=== PATIENT | female | born 1990 | race Two or more races ===

== ENCOUNTER 2018-11-24 17:26 | Emergency (ER) | payer SELFPAY ==
[2018-11-24 17:43] VITALS: BP 145/88
--- NOTE | 2018-11-24 18:16 | UC ---
Throat Pain/Nasal Adarsh HPI - HPI Summary HPI Summary: Patient states approximately 10 days ago she developed a sore throat. Patient states she then developed some sinus pressure and postnasal drip. Patient states her ears feel full likely need to pop. Patient states she's been using Motrin as well as Mucinex with pseudoephedrine. Patient states she continues to feel congested. Patient states she started a fever 2 days ago. Patient states she does have postnasal drip. Patient with a mild cough productive of yellow sputum. No shortness of breath. No nausea vomiting. Decreased appetite and fatigue. 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 Patient states she is not . Patient with a history of recurrent sinus infections. Last one was approximately June. Patient states this feels similar. Medications reviewed this visit. - History of Current Complaint Chief Complaint: UCGeneralIllness Stated Complaint: COLD SYMPTOMS Time Seen by Provider: 11/24/18 17:56 Hx Obtained From: Patient Hx Last Menstrual Period: 2 weeks ago Onset/Duration: Gradual Onset Severity: Moderate Pain Intensity: 4 Pain Scale Used: 0-10 Numeric - Allergies/Home Medications Allergies/Adverse Reactions: Allergies Allergy/AdvReac Type Severity Reaction Status Date / Time No Known Allergies Allergy Verified 11/24/18 17:43 Home Medications: Home Medications PARoxetine HCL TAB* [Paxil TAB*] 10 mg PO DAILY 11/24/18 [History Confirmed ] amLODIPine TAB* [Norvasc 5 mg TAB*] 5 mg PO DAILY 11/24/18 [History Confirmed ] PMH/Surg Hx/FS Hx/Imm Hx Previously Healthy: Yes - Surgical History Surgical History: None - Family History Known Family History: Positive: Non-Contributory - Social History Occupation: Employed Full-time Lives: With Family Alcohol Use: None Substance Use Type: None Smoking Status (MU): Never Smoked Tobacco Review of Systems All Other Systems Reviewed And Are Negative: Yes Constitutional: Positive: Fever, Fatigue Skin: Positive: Negative Eyes: Positive: Negative - no that you discharge ENT: Positive: Nasal Discharge, Sinus Congestion, Sinus Pain/Tenderness Respiratory: Positive: Cough Cardiovascular: Positive: Negative Gastrointestinal: Positive: Negative Genitourinary: Positive: Negative Motor: Positive: Negative Neurovascular: Positive: Negative Musculoskeletal: Positive: Negative Neurological: Positive: Negative Psychological: Positive: Negative Is Patient Immunocompromised?: No - and she did Physical Exam - Summary Physical Exam Summary: Vital Signs Reviewed: Yes A+Ox3, no distress Eyes: Conjunctiva Clear, SELENE. EOM intact and full ENT: Hearing grossly normal fluid left TM, no erythema right TM wnl, turbinates boggy and congested, thick PND. + maxillary sinus tenderness L>R mmoist, uvula midline, no exudate, mild erythema, Neck: Positive: Supple, + mild submandibular LA Respiratory: Positive: No respiratory distress, No accessory muscle use + CTA throughout no w/r Cardiovascular: RRR nl s1, s2 no m/r CBT <2 sec abd soft + BS nt/nd no guarding, no distension Musculoskeletal Exam: GRIFFITH x 4 without difficulty Strength Intact, ROM Intact Neurological: Positive: Alert, + sensation throughout Psychological: Positive: Normal Response To examiner Skin: Positive: no rash, no ecchymosis Triage Information Reviewed: Yes Vital Signs: Initial Vital Signs Temp 99.4 F 11/24/18 17:38 Pulse 88 11/24/18 17:38 Resp 16 11/24/18 17:38 BP 145/88 11/24/18 17:38 Pulse Ox 99 11/24/18 17:38 Throat Pain/Nasal Course/Dx - Course Course Of Treatment: Patient is a 28-year-old female who presents with 10 days progressive sore throat sinus congestion postnasal drip ear fullness and cough. Patient now with low-grade fevers for 3 days. Patient's been taking [id number] remedies with little improvement. On exam vital signs are stable. Patient very congested. Patient exam consistent with rhinosinusitis. I did discuss with patient checking her for strep throat however she declined is we'll be treating her with appropriate antibiotics. We'll also do Flonase. Discussed with patient secretion precautions. Hydration. Return precautions. Patient states agreement and comfortable with plan. Patient declined work note. Patient declined Diflucan. Discussed with patient about diarrhea associated with Augmentin. States understanding. - Differential Dx/Diagnosis Provider Diagnosis: Rhinosinusitis Discharge ED - Sign-Out/Discharge Documenting (check all that apply): Patient Departure All imaging exams completed and their final reports reviewed: No Studies - Discharge Plan Condition: Stable Disposition: HOME Prescriptions: Amoxicillin/Clavulanate TAB* [Augmentin TAB 875*] 875 mg PO BID #14 tab Fluticasone NASAL SPRAY 50MCG* [Flonase NASAL SPRAY 50MCG*] 2 spray BOTH NARES DAILY #1 btl Patient Education Materials: Pharyngitis (ED), Rhinosinusitis (ED) Referrals: [facility] [place] [facility] [Outside] No Primary Care Phys,NOPCP [Primary Care Provider] - Additional Instructions: - Stay well hydrated. Drink plenty of non-alcoholic, non-caffinated beverages. - Alternate ibuprofen (Advil, Motrin) 600mg and Tylenol every 3 hours for pain or fever. Take with food. Do NOT take for more than 4-5 days. - These infections are spread by secretions - do NOT share eating or drinking utensils - clean items you share with other people such as cell phones, computer mouse, TV remote, computer tablets,etc. Once you have been antibiotics for 2 days, change your toothbrush and your pillowcase. - get plenty of restful sleep - humidify the air in the room where you sleep - boil water, run a hot steam shower, vaporizer, cups of water by heat register - okay to take over the counter decongestant and cough medication - use nasal spray as prescribed - Take antibiotics as prescribed until gone - you will likely get diarrhea from the antibiotics- eating yogurt or taking pro-biotics may help limit this side effect - contact your doctor or return with questions or concerns - Billing Disposition and Condition Condition: STABLE Disposition: Home
== END 2018-11-24 18:40 | disposition home or self-care (01) ==
LOC: UCEAST 17:26
DX: J32.9 Chronic sinusitis, unspecified (principal)
CPT/HCPCS: 99202; G0463

== ENCOUNTER 2019-02-03 18:14 | Emergency (ER) | payer SELFPAY ==
--- NOTE | 2019-02-03 18:18 | UC ---
Respiratory Complaint HPI - History of Current Complaint Stated Complaint: COUGH Time Seen by Provider: 02/03/19 18:18 Hx Last Menstrual Period: 2 weeks ago - Allergies/Home Medications Allergies/Adverse Reactions: Allergies Allergy/AdvReac Type Severity Reaction Status Date / Time No Known Allergies Allergy Verified 11/24/18 17:43 PMH/Surg Hx/FS Hx/Imm Hx - Surgical History Surgical History: None - Family History Known Family History: Positive: Non-Contributory - Social History Alcohol Use: None Substance Use Type: None Smoking Status (MU): Never Smoked Tobacco Discharge ED - Discharge Plan Referrals: No Primary Care Phys,NOPCP [Primary Care Provider] -
[2019-02-03 18:23] VITALS: BP 155/82
--- NOTE | 2019-02-03 18:34 | UC ---
Throat Pain/Nasal Adarsh HPI - HPI Summary HPI Summary: 28-year-old female comes in with a chief complaint of 97 days of upper respiratory tract infection symptoms. Patient's been having runny nose nasal congestion. A she is now having sinus pressure and green rhinorrhea. She has had chills. Patient reports after having upper respiratory tract infection she quite often goes into a sinusitis. She reports that in the past Augmentin is working well for her. No complaint of chest congestion or shortness breath. - History of Current Complaint Chief Complaint: UCRespiratory Stated Complaint: COUGH Time Seen by Provider: 02/03/19 18:18 Hx Last Menstrual Period: 12/13/18 Pain Intensity: 6 - Allergies/Home Medications Allergies/Adverse Reactions: Allergies Allergy/AdvReac Type Severity Reaction Status Date / Time egg yolk Allergy Sneezing Verified 02/03/19 18:24 Home Medications: Home Medications Dm/PE/Acetaminophen/Doxylamine [Vicks Dayquil/Nyquil Cold] 1 mis PO ONCE PRN 07/18 [History Confirmed 02/03/19] Ibuprofen [Advil] 1 tab PO ONCE PRN 02/03/19 [History Confirmed 02/03/19] PMH/Surg Hx/FS Hx/Imm Hx Previously Healthy: Yes - Surgical History Surgical History: None - Family History Known Family History: Positive: Non-Contributory - Social History Alcohol Use: Occasionally Substance Use Type: None Smoking Status (MU): Never Smoked Tobacco Review of Systems All Other Systems Reviewed And Are Negative: Yes Constitutional: Positive: Chills, Other - see hpi Skin: Positive: Negative Eyes: Positive: Negative ENT: Positive: Sore Throat, Nasal Discharge, Sinus Congestion, Sinus Pain/ Tenderness Respiratory: Positive: Negative Cardiovascular: Positive: Negative Gastrointestinal: Positive: Negative Motor: Positive: Negative Neurovascular: Positive: Negative Musculoskeletal: Positive: Arthralgia Neurological: Positive: Negative Psychological: Positive: Negative Is Patient Immunocompromised?: No Physical Exam Appearance: No Pain Distress, Well-Nourished, Ill-Appearing - mild Vital Signs: Initial Vital Signs Temp 97.7 F 02/03/19 18:18 Pulse 79 02/03/19 18:18 Resp 18 02/03/19 18:18 BP 155/82 02/03/19 18:18 Pulse Ox 97 02/03/19 18:18 Vital Signs Reviewed: Yes Eye Exam: Normal Eyes: Positive: Conjunctiva Clear ENT: Positive: Pharyngeal erythema, Nasal congestion, Nasal drainage, TMs normal Neck: Positive: Supple Respiratory: Positive: Lungs clear, Normal breath sounds, No respiratory distress Cardiovascular: Positive: RRR Musculoskeletal: Positive: Strength Intact, ROM Intact Neurological: Positive: Alert, Muscle Tone Normal Psychological: Positive: Age Appropriate Behavior Skin Exam: Normal Throat Pain/Nasal Course/Dx - Course Course Of Treatment: Patient's having sinusitis symptoms with 10 days of symptoms. Patient reports that Augmentin is worked in the past we'll treat with out again. Reevaluate if worsening or not improving - Differential Dx/Diagnosis Provider Diagnosis: Sinusitis Discharge ED - Sign-Out/Discharge Documenting (check all that apply): Patient Departure All imaging exams completed and their final reports reviewed: No Studies - Discharge Plan Condition: Stable Disposition: HOME Prescriptions: Amoxicillin/Clavulanate TAB* [Augmentin TAB 875*] 875 mg PO BID #20 tab Patient Education Materials: Sinusitis (ED) Referrals: [facility] – [place] [facility] [Outside] Additional Instructions: FOLLOW UP WITH YOUR DOCTOR IF NOT COMPLETELY IMPROVED. GET REEVALUATED SOONER IF NOT IMPROVED OR WORSE OR ANY QUESTIONS OR CONCERNS. - Billing Disposition and Condition Condition: STABLE Disposition: Home
== END 2019-02-03 18:35 | disposition home or self-care (01) ==
LOC: UCEAST 18:14
DX: J32.9 Chronic sinusitis, unspecified (principal); R05 Cough; J02.9 Acute pharyngitis, unspecified; Z91.012 Allergy to eggs
CPT/HCPCS: 99212; G0463